=== PATIENT | female | born 1995 | race Caucasian/White ===

== ENCOUNTER 2016-10-11 21:22 | Emergency (ER) | payer SELFPAY ==
[~2016-10-11] VITALS: Ht 160 cm; Wt 86.2 kg
[2016-10-11 22:22] LABS: BILIRUBIN NEGATIVE (NEGATIVE); BLOOD 3+ (NEGATIVE); CLARITY SL CLOUDY (CLEAR); COLOR YELLOW (YELLOW); GLUCOSE NEGATIVE (NEGATIVE); KETONE TRACE (NEGATIVE); LEUKO ESTERASE NEGATIVE (NEGATIVE); NITRITE NEGATIVE (NEGATIVE); PROTEIN 1+ (NEGATIVE); SPECIFIC GRAVITY 1.025 (1.005-1.030)
[2016-10-11 22:35] LABS: BACTERIA 2+; MUCOUS 1+; URINE REFLEX COMMENT YES (NO)
[2016-10-11] MEDS ORDERED: KEFLEX750 M1 PO (22:39)
== END 2016-10-11 22:51 | disposition home or self-care (01) ==
LOC: ED 21:22
PROVIDERS: Nurse Practitioner Family
DX: N39.0 Urinary tract infection, site not specified (principal); J00 Acute nasopharyngitis [common cold]; R31.9 Hematuria, unspecified; H92.02 Otalgia, left ear